=== PATIENT | male | born 1960 | race Caucasian/White ===

== ENCOUNTER 2018-12-05 17:37 | Emergency (ER) | payer OTHER ==
--- NOTE | 2018-12-05 19:01 | ED Physician Documentation ---
PD HPI SKIN - Stated complaint Stated Complaint: ALLERGIC REACTION/NECK SWELLING - Chief complaint Chief Complaint: Allergic Rx - History obtained from History obtained from: Patient - History of Present Illness Timing - onset: How many minutes ago (30), Today Timing - details: Abrupt onset, Still present (but has tapered down quite a bit since the peak of it.) Location: Face (he was eating dinner and had abrupt onset of swelling left submandibular area, cheek, side of tongue and back of throat. brought him immediately to the ER. Swelling has decreased on the way and is mostly gone by time seen. He was eating a common meal for them, with only difference being a different brand of olives, else is previously eaten foods.) Quality / character: Swelling (face and tongue/throat). No: Itchy, Painful Associated symptoms: Facial swelling. No: Fever, Dyspnea, N/V/D Contributing factors: Exposed to food. No: Recent illness Similar symptoms before: Has not had sx before Recently seen: Not recently seen Review of Systems Constitutional: denies: Fever, Myalgias Nose: denies: Rhinorrhea / runny nose, Congestion Throat: denies: Sore throat Cardiac: denies: Chest pain / pressure Respiratory: denies: Cough GI: denies: Nausea, Vomiting, Diarrhea Skin: denies: Rash (did not have hives nor rash, just the swelling of neck and throat/oral) PD PAST MEDICAL HISTORY - Past Medical History Cardiovascular: Hypertension Respiratory: None Neuro: None Endocrine/Autoimmune: None - Present Medications Home Medications: Ambulatory Orders Medication Instructions Recorded Confirmed Lisinopril [Zestril] 40 mg PO DAILY 12/05/18 12/05/18 - Allergies Allergies/Adverse Reactions: Allergies Allergy/AdvReac Type Severity Reaction Status Date / Time Penicillins Allergy Anaphylaxis Verified 12/05/18 17:46 PD ED PE NORMAL - Vitals Vital signs reviewed: Yes - General General: Alert and oriented X 3, No acute distress, Well developed/nourished - HEENT HEENT: Pharynx benign (minimal edema of the uvula currently. Tongue is okay. Mild submandibular edema on left. Normal swallowing and voice. Sublingual area without notable edema. ) - Neck Neck: Supple, no meningeal sign, No adenopathy - Cardiac Cardiac: RRR, No murmur - Respiratory Respiratory: Clear bilaterally - Abdomen Abdomen: Soft, Non tender - Derm Derm: Normal color, Warm and dry, No rash Results - Vitals Vitals: Oxygen O2 Source Room air PD MEDICAL DECISION MAKING - ED course Complexity details: considered differential (he relates it to the food he was eating, but he is on Lisinopril and would be concerned it is related. ), d/w patient Departure - Departure Disposition: 01 Home, Self Care Clinical Impression: Angioedema Qualifiers: Encounter type: initial encounter Qualified Code(s): T78.3XXA - Angioneurotic edema, initial encounter Condition: Stable Record reviewed to determine appropriate education?: Yes Instructions: ED Angioedema Follow-Up: STEVEN GONZALEZ [Primary Care Provider] - Comments: This may be an allergic reaction to the food you are eating so avoid that particular type of [place] food and Allis. However abrupt swelling like you had can be caused by the blood pressure medicine lisinopril that you take. It can be random even though you have been taking it for a while. So I would avoid your lisinopril for now and talk with your primary care. Recheck if persistent symptoms over the next few days. Discharge Date/Time: 12/05/18 19:38
[2018-12-05] MEDS ORDERED: DEXAMETHASONE 10 MG/ML VIAL PO STA (19:26)
[2018-12-05] MEDS ORDERED: CETIRIZINE 10 MG TABLET PO STA (19:26)
[2018-12-05 19:39] VITALS: BP 173/104
== END 2018-12-05 19:38 | disposition home or self-care (01) ==
LOC: ED 17:37
DX: T78.3XXA Angioneurotic edema, initial encounter (principal); I10 Essential (primary) hypertension
CPT/HCPCS: 99282; 99283; A9270

== ENCOUNTER 2020-10-05 | Outpatient (CLI) | payer OTHER | END 2020-10-05 13:35 | disposition critical access hospital (66) | CPT/HCPCS: A0425; A0427 ==

== ENCOUNTER 2020-10-05 13:52 | Emergency (ER) | payer OTHER ==
--- NOTE | 2020-10-05 13:54 | ED Physician Documentation ---
PD HPI ABD PAIN - Stated complaint Stated Complaint: AB PX - History obtained from History obtained from: Patient, EMS (dispatch for lower abd pain. They noted abnormal appearance on heart monitor. ECG showed RBBB. Pt without chest pain.) - History of Present Illness Timing - onset: Today Timing - duration: Hours Timing - details: Abrupt onset, Still present, Waxing and waning (has been hav ing midline to RLQ cramping pains intermittently for several months. Will bother him few cdays, then better for days but not longer. Has appt with PCP about it this coming week. Had worse pain today, associated with fever/chills. No cough nor URI symptoms.) Quality: Cramping, Aching, Stabbing, Pain Location: RLQ, Suprapubic Radiation: No: Chest, Lower back, Right flank Associated symptoms: Nausea, Loss of appetite. No: Fever, Vomiting, Diarrhea, Constipation, Melena, Hematochezia, Dysuria Similar symptoms before: No diagnosis (pain is worse than has been and had not had fever previously.) Recently seen: Not recently seen (appt this coming week with PCP.) Review of Systems Constitutional: reports: Fever (today), Chills, Myalgias Nose: reports: Other (no change in taste nor smell). denies: Rhinorrhea / runny nose, Congestion Throat: denies: Sore throat Cardiac: denies: Chest pain / pressure, Palpitations Respiratory: denies: Dyspnea, Cough GI: reports: Abdominal Pain, Nausea. denies: Abdominal Swelling, Vomiting, Constipation, Diarrhea : reports: Hesitancy. denies: Dysuria, Frequency Skin: denies: Rash, Lesions PD PAST MEDICAL HISTORY - Past Medical History Cardiovascular: Hypertension Respiratory: None Neuro: None Endocrine/Autoimmune: None - Past Surgical History Past Surgical History: No - Present Medications Home Medications: Ambulatory Orders Medication Instructions Recorded Confirmed Lisinopril [Zestril] 40 mg PO DAILY 12/05/18 10/05/20 Ciprofloxacin HCl [Cipro] 500 mg PO BID #20 tablet 10/05/20 - Allergies Allergies/Adverse Reactions: Allergies Allergy/AdvReac Type Severity Reaction Status Date / Time Penicillins Allergy Anaphylaxis Verified 10/05/20 14:00 - Social History Does the pt smoke?: No Smoking Status: Never smoker Does the pt drink ETOH?: Yes Does the pt have substance abuse?: No - Immunizations Immunizations are current?: No Immunizations: TDAP >10years/unknown PD ED PE NORMAL - Vitals Vital signs reviewed: Yes - General General: Alert and oriented X 3, Well developed/nourished, Other (appears uncomfortable with lower abd pain. Also feeling chills (has fever). ) - HEENT HEENT: Pharynx benign - Neck Neck: Supple, no meningeal sign, No adenopathy - Cardiac Cardiac: RRR, No murmur - Respiratory Respiratory: Clear bilaterally - Abdomen Abdomen: Normal bowel sounds, Soft, Non distended, No organomegaly, Other (tender RLQ to suprapubic area with some local guarding but no percussion nor rebound tenderness. ) - Male Male : Deferred - Rectal Rectal: Deferred - Back Back: No CVA TTP - Derm Derm: Normal color, Warm and dry, No rash - Extremities Extremities: No tenderness to palpate, Normal ROM s pain, No edema, No calf tenderness / cord - Neuro Neuro: Alert and oriented X 3, No motor deficit, Normal speech Results - Vitals Vitals: Vital Signs - 24 hr 10/05/20 10/05/20 10/05/20 14:00 14:28 14:47 Temperature 38.5 C H 38.2 C H Heart Rate 116 H 109 H 102 H Respiratory 22 13 16 Rate Blood Pressure 165/111 H 159/111 H 162/76 H O2 Saturation 96 94 98 10/05/20 10/05/20 15:21 16:04 Temperature 37.4 C 37.7 C Heart Rate 106 H 108 H Respiratory 16 16 Rate Blood Pressure 135/94 H 132/108 H O2 Saturation 96 93 Oxygen O2 Source Room air - EKG (time done) 14:08 Rate: Rate (enter#) (116) Rhythm: Sinus tachycardia Intervals: Normal MT, RBBB. No: Prolonged MT Ischemia: Non specific changes. No: ST elevation c/w ischemia - Labs Labs: Laboratory Tests 10/05/20 10/05/20 10/05/20 14:15 14:18 14:24 WBC 8.6 RBC 5.69 Hgb 15.7 Hct 47.6 MCV 83.7 MCH 27.6 MCHC 33.0 RDW 13.8 Plt Count 162 MPV 11.2 Neut # (Auto) 7.5 H Lymph # (Auto) 0.4 L Crook # (Auto) 0.6 Eos # (Auto) 0.0 Baso # (Auto) 0.0 Absolute Nucleated RBC 0.00 Nucleated RBC % 0.0 Sodium Potassium Chloride Carbon Dioxide Anion Gap BUN Creatinine Estimated GFR (MDRD) Glucose Calcium Total Bilirubin AST ALT Alkaline Phosphatase Total Protein Albumin Globulin Albumin/Globulin Ratio Lipase Prostate Specific Ag Free PSA % Free PSA Calc Urine Color YELLOW Urine Clarity HAZY Urine pH 6.0 Ur Specific [place] >=1.030 H Urine Protein 100 H Urine Glucose (UA) >=1000 H Urine Ketones TRACE Urine Occult Blood SMALL H Urine Nitrite NEGATIVE Urine Bilirubin NEGATIVE Urine Urobilinogen 0.2 (NORMAL) Ur Leukocyte Esterase NEGATIVE Urine RBC 0-5 Urine WBC 0-3 Ur Squamous Epith Cells RARE Squamous Urine Bacteria Few Urine Casts 0-2 Granular Casts Urine Mucus Few Strands Ur Microscopic Review INDICATED Urine Culture Comments NOT INDICATED Nasal Adenovirus (PCR) NOT DETECTED Nasal B. parapertussis DNA (PCR) NOT DETECTED Nasal Coronavir 229E PCR NOT DETECTED Nasal Coronavir HKU1 PCR NOT DETECTED Nasal Coronavir NL63 PCR NOT DETECTED Nasal Coronavir OC43 PCR NOT DETECTED Nasal Enterovir/Rhinovir PCR NOT DETECTED Nasal Influenza B PCR NOT DETECTED Nasal Influenza A PCR NOT DETECTED Nasal Parainfluen 1 PCR NOT DETECTED Nasal Parainfluen 2 PCR NOT DETECTED Nasal Parainfluen 3 PCR NOT DETECTED Nasal Parainfluen 4 PCR NOT DETECTED Nasal RSV (PCR) NOT DETECTED Nasal B.pertussis DNA PCR NOT DETECTED Nasal C.pneumoniae (PCR) NOT DETECTED Lorenzo Human Metapneumo PCR NOT DETECTED Nasal M.pneumoniae (PCR) NOT DETECTED Nasal SARS-CoV-2 (PCR) NOT DETECTED Ethyl Alcohol 10/05/20 10/05/20 14:34 15:59 WBC RBC Hgb Hct MCV MCH MCHC RDW Plt Count MPV Neut # (Auto) Lymph # (Auto) Crook # (Auto) Eos # (Auto) Baso # (Auto) Absolute Nucleated RBC Nucleated RBC % Sodium 136 Potassium 3.4 L Chloride 99 L Carbon Dioxide 25 Anion Gap 12.0 BUN 17 Creatinine 1.1 Estimated GFR (MDRD) 68 L Glucose 271 H Calcium 8.6 Total Bilirubin 0.9 AST 21 ALT 23 Alkaline Phosphatase 102 Total Protein 6.7 Albumin 3.6 Globulin 3.1 Albumin/Globulin Ratio 1.2 Lipase 21 L Prostate Specific Ag 2.570 H Free PSA 0.720 % Free PSA Calc 28 Urine Color Urine Clarity Urine pH Ur Specific [place] Urine Protein Urine Glucose (UA) Urine Ketones Urine Occult Blood Urine Nitrite Urine Bilirubin Urine Urobilinogen Ur Leukocyte Esterase Urine RBC Urine WBC Ur Squamous Epith Cells Urine Bacteria Urine Casts Urine Mucus Ur Microscopic Review Urine Culture Comments Nasal Adenovirus (PCR) Nasal B. parapertussis DNA (PCR) Nasal Coronavir 229E PCR Nasal Coronavir HKU1 PCR Nasal Coronavir NL63 PCR Nasal Coronavir OC43 PCR Nasal Enterovir/Rhinovir PCR Nasal Influenza B PCR Nasal Influenza A PCR Nasal Parainfluen 1 PCR Nasal Parainfluen 2 PCR Nasal Parainfluen 3 PCR Nasal Parainfluen 4 PCR Nasal RSV (PCR) Nasal B.pertussis DNA PCR Nasal C.pneumoniae (PCR) Lorenzo Human Metapneumo PCR Nasal M.pneumoniae (PCR) Nasal SARS-CoV-2 (PCR) Ethyl Alcohol < 5.0 - Rads (name of study) abd/pelvic CT Radiology: Prelim report reviewed (no acute process. Diverticula without evident diverticulitis. Normal appendix. No ureteral stones. No other acute process. ), See rad report PD MEDICAL DECISION MAKING - ED course Complexity details: reviewed results, re-evaluated patient (he is feeling much better and is anxious to be discharged. I do not see reason for hospitalization. ), considered differential (he is feeling much better with just mild meds here. Given the recurrent pattern of the pain, with now worse pain and fever, I could assume early diverticulitis not seen on CT, or consider prostatitis, since an equivocal UA and lower abd pain. Can get PSA and I would treat empirically likely bacteria), d/w patient Departure - Departure Disposition: 01 Home, Self Care Clinical Impression: Lower abdominal pain Fever Qualifiers: Fever type: unspecified Qualified Code(s): R50.9 - Fever, unspecified Condition: Stable Record reviewed to determine appropriate education?: Yes Instructions: ED Abdominal Pain Unkn Cause Prescriptions: Ciprofloxacin HCl [Cipro] 500 mg PO BID #20 tablet Comments: Your urine has some white cells that could possibly be suggestive of an infection, however I would think it would be more convincing if it was causing your degree of fever and pain right now. Your CT scan does not show any obvious cause of infection or source of infection at this point. You do have diverticula but no obvious diverticulitis. Considerations would still be for possible early diverticulitis not seen on the CT. I would also consider possible prostatitis as a cause for your symptoms. The PSA test is pending. At this point stay well-hydrated and use Tylenol or ibuprofen for fevers and pains. Add ciprofloxacin antibiotic twice daily targeting at those possible causes noted above. Follow-up with your primary care this coming week, call Thursday for an appointment. Return if worsening over the next few days. Discharge Date/Time: 10/05/20 16:26
[2020-10-05] MEDS ORDERED: SODIUM CHLORIDE 0.9% 1,000 ML IV STA (14:04)
[2020-10-05] MEDS ORDERED: HYDROmorphone 1 MG/ML CARPUJECT IVP STA (14:04)
[2020-10-05] MEDS ORDERED: ONDANSETRON 4 MG/2 ML VIAL IVP STA (14:04)
[2020-10-05] MEDS ORDERED: KETOROLAC 30 MG/ML VIAL IVP STA (14:05)
[2020-10-05] MEDS ORDERED: IOVERSOL 320 100 ML VIAL IVP ONE ×2 (14:20→15:21)
[2020-10-05 14:22] LABS: BILIRUBIN,URINE NEGATIVE (NEGATIVE); GLUCOSE, URINE (UA) >=1000 mg/dL (NEGATIVE); KETONES,URINE (UA) TRACE mg/dL (NEGATIVE); LEUKOCYTE ESTERASE, URINE NEGATIVE (NEGATIVE); NITRITE,URINE NEGATIVE (NEGATIVE); OCCULT BLOOD,URINE SMALL (NEGATIVE); PROTEIN,URINE 100 mg/dL (NEGATIVE); UROBILINOGEN,URINE 0.2 (NORMAL) E.U./dL (NORMAL)
[2020-10-05 14:23] LABS: CLARITY,URINE HAZY (CLEAR)
[2020-10-05 14:36] LABS: BASOPHILS % (AUTO) 0.5 %; EOSINOPHILS % (AUTO) 0.2 %; HGB - HEMOGLOBIN 15.7 g/dL (14.0-18.0); LYMPHOCYTES # (AUTO) 0.4 10^3/uL (1.5-3.5); LYMPHOCYTES % (AUTO) 4.9 %; MEAN CORPUSCULAR HEMOGLOBIN 27.6 pg (27.0-31.0); MEAN CORPUSCULAR VOLUME 83.7 fL (80.0-94.0); MEAN PLATELET VOLUME 11.2 fL (7.4-11.4); MONOCYTES # (AUTO) 0.6 10^3/uL (0.0-1.0); MONOCYTES % (AUTO) 6.7 %; NEUTROPHILS # (AUTO) 7.5 10^3/uL (1.5-6.6); NEUTROPHILS % (AUTO) 86.9 %; PLT - PLATELET COUNT 162 10^3/uL (130-450); RED BLOOD COUNT 5.69 10^6/uL (4.70-6.10); RED CELL DISTRIBUTION WIDTH 13.8 % (12.0-15.0); WHITE BLOOD COUNT 8.6 x10^3/uL (4.8-10.8)
[2020-10-05 14:41] LABS: BACTERIA,URINE Few /HPF (None Seen); MUCUS,URINE Few Strands; RBC,URINE 0-5 /HPF (0-5); SQUAMOUS EPITHELIAL CELL,UR RARE Squamous (<= Few)
[2020-10-05 14:52] LABS: ALBUMIN 3.6 g/dL (3.2-5.5); ALBUMIN/GLOBULIN RATIO 1.2 (1.0-2.2); ALKALINE PHOSPHATASE 102 IU/L (42-121); ALT ALANINE AMINOTRANSFERASE 23 IU/L (10-60); AST ASPARTATE AMINOTRANSFERASE 21 IU/L (10-42); BILIRUBIN,TOTAL 0.9 mg/dL (0.2-1.0); BUN - BLOOD UREA NITROGEN 17 mg/dL (6-20); CALCIUM 8.6 mg/dL (8.5-10.3); CARBON DIOXIDE - CO2 25 mmol/L (21-32); CHLORIDE 99 mmol/L (101-111); CREATININE 1.1 mg/dL (0.6-1.2); GLUCOSE 271 mg/dL (70-100); LIPASE 21 U/L (22-51); SODIUM 136 mmol/L (135-145); TOTAL PROTEIN 6.7 g/dL (6.7-8.2)
[2020-10-05 15:25] LABS: C. PNEUMONIAE- RESP PCR PANEL NOT DETECTED
--- NOTE | 2020-10-05 15:38 | CT Report ---
PROCEDURE: Abdomen/Pelvis W INDICATIONS: LLQ Abdominal pain, diverticulitis suspected CONTRAST: IV CONTRAST: Optiray 320 ml: 100 PO CONTRAST: *NO PO CONTRAST TECHNIQUE: After the administration of nonionic IV contrast, 5 mm thick sections acquired from the diaphragms to the symphysis. 5 mm thick coronal and sagittal reformats were acquired. For radiation dose reducti on, the following was used: automated exposure control, adjustment of mA and/or kV according to gagan ent size. COMPARISON: None. FINDINGS: Image quality: Excellent. ABDOMEN: Lung bases: Lung bases are clear. Heart size is normal. Solid organs: Liver and spleen are normal in size and enhancement. Diffuse fatty liver infiltration can be seen. An accessory splenule is incidentally noted along the hilum of the primary spleen. Gallbladder wall does not appear thickened. Biliary system is non dilated. Pancreas enhances nor ina. No adrenal nodules. Kidneys demonstrate normal size and enhancement, without hydronephrosis. Bilateral peripelvic cysts are seen, left more prominent than right. Peritoneum and bowel: In this patient with this given history, scrutiny is given to the sigmoid colo n. Minimal sigmoid diverticulosis is seen, without findings of active diverticulitis. No focal left l ower quadrant inflammatory changes are seen. Bowel loops demonstrate normal wall thickness and caliber. No free fluid or air. A normal appendix is incidentally noted. Nodes and vessels: No retroperitoneal or mesenteric adenopathy by size criteria. Aorta and inferior vena cava are normal in size. Miscellaneous: No ventral hernias. PELVIS: Genitourinary: Bladder wall thickness is normal. Miscellaneous: No inguinal hernias or adenopathy. Bones: No suspicious bony lesions. No vertebral body compression fractures. IMPRESSION: Negative for diverticulitis. No focal left lower quadrant inflammatory changes can be se en. Incidental note is made of: Fatty liver infiltration Accessory splenule Bilateral peripelvic cysts, left more prominent than right. Reviewed by: Giuliano Cunha MD on 10/05/2020 2:37 PM [place] Approved by: Giuliano Cunha MD on 10/05/2020 2:37 PM [place] Station ID: [id number]
[2020-10-05 16:05] VITALS: BP 132/108
[2020-10-05] MEDS ORDERED: CIPROFLOXACIN 250 MG TABLET PO STA (16:13)
[2020-10-05 16:43] LABS: PSA FREE 0.72 ng/mL (0.16-2.81)
[2020-10-05 16:44] LABS: PSA TOTAL 2.57 ng/mL (0.000-2.000)
== END 2020-10-05 16:26 | disposition home or self-care (01) ==
LOC: EDUNIT# → ED 13:52
DX: R50.9 Fever, unspecified (principal); R10.31 Right lower quadrant pain; I10 Essential (primary) hypertension; Z20.828 Contact with and (suspected) exposure to other viral communicable diseases
CPT/HCPCS: 0202U; 74177; 80053; 80320; 81001; 83690; 84153; 84154; 85025; 93005; 96374; 99284; A9270; J1170; Q9967; 81003; 87086